=== PATIENT | male | born 1965 | race Caucasian/White ===

== ENCOUNTER → 2017-10-07 10:02 | Outpatient (CLI) | payer OTHER, SELFPAY ==
[2017-10-07 14:17] LABS: Absolute Lymphocyte Count 1.53 X10^3/ul (0.83-4.51); Absolute Neutrophil Count 4.4 X10^3/uL (2.0-7.7); Basophil# 0.02 X10^3/uL; Basophil% 0.3 % (0-1); Eosinophil# 0.05 X10^3/uL; Eosinophils% 0.8 % (0-5); Hematocrit 48.2 % (40-54); Hemoglobin 16.2 g/dl (13.0-16.5); Lymphocyte # 1.53 X10^3/ul (4.0); Lymphocyte % 24.1 % (19-41); Mean Corp Hgb Conc 33.6 g/gl (32-36); Mean Corpuscular Hgb 31.4 pg (27.0-32.0); Mean Corpuscular Volume 93.4 fL (80-94); Mean Platelet Vol. 10.8 fl (6.2-12.0); Monocyte# 0.39 X10^3/uL; Monocyte% 6.1 % (0-10); Neutrophil # 4.36 X10^3/uL (2.7-7.7); Neutrophil % 68.5 % (47-70); POSITIVE COUNT NO; POSITIVE DIFFERENTIAL NO; POSITIVE MORPHOLOGY NO; Platelet Count 159 K/mm3 (150-450); RBC Distribution Width CV 12.9 % (11.6-14.6); RBC Distribution Width SD 43.8 fl (35.1-43.9); Red Blood Count 5.16 M/mm3 (4.6-6.2); White Blood Count 6.4 K/mm3 (4.4-11.0)
[2017-10-07 14:37] LABS: AST(SGOT) 23 U/L (15-37); Alanine Aminotransfer ALT/SGPT 47 U/L (16-61); Albumin, Serum 3.7 g/dL (3.2-5.0); Alkaline Phosphatase 97 U/L (45-117); Anion Gap 8 (5-15); BUN 13 mg/dL (7-18); Calcium,Total 8.4 mg/dL (8.5-10.1); Chloride 109 mmol/L (98-107); EST Glomerular Filtration Rate 83 mL/min (>60); Est Glom Filt Rate - Afr Amer 100 mL/min (>60); Globulin 3.5 g/dL (2.2-4.2); Glucose 77 mg/dL (74-106); PSA,Total - Annual Screen 1.09 ng/mL (0.00-4.00); Potassium 3.9 mmol/L (3.5-5.1); Protein, Total 7.2 g/dL (6.4-8.2); Sodium Level 142 mmol/L (136-145)
[2017-10-07 15:21] LABS: HIV - WCH Non-Reactive (Nonreactive)
[2017-10-17 16:07] LABS: HEPATITIS B SURFACE AG Negative (Negative); QNTFERON TB Ag Minus Nil Value 0 IU/mL (.); QNTFERON TB Ag Value 0.04 IU/mL (.); QNTFERON TB Mitogen Value > 10.00 IU/mL (.); QNTFERON TB Nil Value 0.04 IU/mL (.)
[2017-10-19 11:20] LABS: Hep B Surface Antibodies Non Reactive (.); Hep C Antibodies 0.1 s/co ratio (0.0-0.9); Hepatitis B Core Ab Total Negative (Negative); QNTIFERON TB Gold Negative (Negative)
== END ==
PROVIDERS: Family Provider Family Medicine; PCP Family Medicine; Visit Provider Dermatology
DX: Z00.00 Encounter for general adult medical examination without abnormal findings (principal); Z79.899 Other long term (current) drug therapy; L40.0 Psoriasis vulgaris
CPT/HCPCS: 36415; 80048; 80076; 84153; 85025; 86480; 86703; 86704; 86706; 86803; 87340; G0103

== ENCOUNTER → 2020-01-25 | Outpatient (CLI) | payer OTHER, SELFPAY | END | disposition home or self-care (01) | LOC: LABSPEC 16:41 | PROVIDERS: PCP Family Medicine; Referring Provider Family Medicine; Visit Provider Family Medicine | DX: J06.9 Acute upper respiratory infection, unspecified (principal) | CPT/HCPCS: 87635; U0003 ==

== ENCOUNTER → 2020-04-23 16:37 | Outpatient (CLI) | payer OTHER, SELFPAY ==
[2020-04-23 18:25] LABS: Hematocrit 47.8 % (40-54); Hemoglobin 15.9 g/dL (13.0-16.5); Mean Corp Hgb Conc 33.3 g/dL (32-36); Mean Corpuscular Hgb 31.2 pg (27.0-32.0); Mean Corpuscular Volume 93.9 fL (80-94); Mean Platelet Vol. 10.7 fl (6.2-12.0); Platelet Count 187 K/mm3 (150-450); RBC Distribution Width CV 12.5 % (11.6-14.6); RBC Distribution Width SD 43.1 fl (35.1-43.9); Red Blood Count 5.09 M/mm3 (4.6-6.2); White Blood Count 6.5 K/mm3 (4.4-11.0)
[2020-04-23 19:00] LABS: Thyroid Stim Hormone (TSH) 0.96 uIU/mL (0.358-3.74)
== END ==
PROVIDERS: PCP Family Medicine; Referring Provider Family Medicine; Visit Provider Nurse Practitioner Family
DX: R53.83 Other fatigue (principal)
CPT/HCPCS: 36415; 84443; 85027

== ENCOUNTER 2022-02-13 07:38 | Outpatient (CLI) | payer OTHER, SELFPAY ==
[2022-02-13 10:35] LABS: Cholesterol 156 mg/dL (200); High Density Lipoprotein 46 mg/dL; PSA,Total - Annual Screen 2.01 ng/mL (0.00-4.00); Triglycerides 96 mg/dL; Very Low Density Lipoprotein 19 mg/dL (5-40)
== END 2022-02-13 23:59 | disposition home or self-care (01) ==
PROVIDERS: PCP Family Medicine; Referring Provider Family Medicine; Visit Provider Family Medicine
DX: Z00.00 Encounter for general adult medical examination without abnormal findings (principal); V70.0XXA Driver of bus injured in collision with pedestrian or animal in nontraffic accident, initial encounter
CPT/HCPCS: 36415; 80061; 84153; G0103

== ENCOUNTER → 2023-03-30 | Outpatient (CLI) | payer OTHER, SELFPAY ==
[2023-03-30 13:38] LABS: PSA,Total - Annual Screen 2.24 ng/mL (0.00-4.00)
== END | disposition home or self-care (01) ==
LOC: MFPLAB 10:51
PROVIDERS: PCP Family Medicine; Visit Provider Family Medicine
DX: Z12.5 Encounter for screening for malignant neoplasm of prostate (principal)
CPT/HCPCS: 36415; 84153; G0103

== ENCOUNTER 2023-09-09 20:45 | Emergency (ER) | payer OTHER, SELFPAY ==
[2023-09-09 20:46] VITALS: BP 139/73; PULSE 75; RESP 16; TEMP 36.6; O2SAT 95; BMI 32.7
--- NOTE | 2023-09-09 20:56 | EKG12_ITS ---
Test Reason : Blood Pressure : / mmHG Vent. Rate : 066 BPM Atrial Rate : 066 BPM P-R Int : 108 ms QRS Dur : 084 ms QT Int : 378 ms P-R-T Axes : 032 -19 -03 degrees QTc Int : 396 ms Sinus rhythm with short TN Minimal voltage criteria for LVH, may be normal variant ( R in aVL ) Borderline ECG Confirmed by BILLIE MURCIA, EDUARDO ([id number]), publication editor HARISH CHAVIS ([id number]) on 09/15/2023 2:22:54 PM Referred By: Confirmed By:CHE WISE MD
[2023-09-09 21:05] LABS: Absolute Lymphocyte Count 2.34 X10^3/uL (0.83-4.51); Absolute Neutrophil Count 5.9 X10^3/uL (2.0-7.7); Basophil# 0.03 X10^3/uL; Basophil% 0.3 % (0-1); Eosinophil# 0.13 X10^3/uL; Eosinophils% 1.4 % (0-5); Hematocrit 48.2 % (40-54); Hemoglobin 16.1 g/dL (13.0-16.5); Lymphocyte # 2.34 X10^3/ul (0.83-4.51); Lymphocyte % 25.3 % (19-41); Mean Corp Hgb Conc 33.4 g/dL (32-36); Mean Corpuscular Hgb 30.6 pg (27.0-32.0); Mean Corpuscular Volume 91.6 fL (80-94); Mean Platelet Vol. 9.8 fl (6.2-12.0); Monocyte# 0.85 X10^3/uL; Monocyte% 9.2 % (0-10); NRBC Flagged by Analyzer 0 % (0-5); Neutrophil # 5.88 X10^3/uL (2.7-7.7); Neutrophil % 63.5 % (47-70); Platelet Count 192 K/mm3 (150-450); RBC Distribution Width CV 12.6 % (11.6-14.6); RBC Distribution Width SD 42.4 fl (35.1-43.9); Red Blood Count 5.26 M/mm3 (4.6-6.2); White Blood Count 9.3 K/mm3 (4.4-11.0)
--- NOTE | 2023-09-09 21:12 | EDS_ITS ---
HPI HPI - GI History of Present Illness Chief Complaint: Abd Pain Narrative Narrative: 58-year-old male presenting with abdominal pain. He states this started acutely about 20 minutes prior to arrival. He states that sharp started in the left flank. He states that his whole abdomen feels tight now. He is having trouble finding a position of comfort. He has mild nausea. He denies constipation or diarrhea. No urinary complaints. He states he has a distant history of kidney stones in the past. He states he is never felt pain like this before. PFSH PFS Medical History MERARY (obstructive sleep apnea) Urinary calculus Shoulder pain Home Medications ?Medication ?Instructions ?Recorded ?Last Taken ?Type No Known/Unobtainable [No Known 04/29/16 Unknown History Home Medications] Allergy/AdvReac Type Severity Reaction Status Date / Time No Known Allergies Allergy Verified 09/28/18 08:04 Family History Grandmother Diabetes Grandfather Diabetes Emphysema of lung Mother Macular degeneration Father Prostate cancer Surgical History H/O shoulder surgery Social History Smoking Status: Never smoker ROS ROS ED Constitutional Constitutional ED: Denies chills, fever(s) or sweats Eyes Eyes: Denies blurry vision or change in vision ENT ENT ED: Denies ear pain or sore throat Cardiovascular Cardiovascular: Denies chest pain, palpitations or racing heartbeat Respiratory/Chest Respiratory/Chest: Denies cough, dyspnea or sputum Gastrointestinal Gastrointestinal: Reports abdominal pain and nausea; Denies constipation, diarrhea or vomiting Genitourinary Genitourinary ED: Denies dysuria, hematuria or urinary frequency Musculoskeletal Musculoskeletal: Denies arthralgias, myalgias or neck pain Integumentary Denies abscess, Abrasions or rash Neurologic Neurologic: Denies headache(s), paresthesias or weakness Psychiatric Psychiatric: Denies anxiety, depression, suicidal ideation or suicidal thoughts Endocrine Endocrinology: Denies polydipsia or polyuria EXAM Physical Exam Const Vital Signs: 09/09/23 20:46 Temperature 98 F Temperature Source Temporal Pulse Rate 75 Respiratory Rate 16 Blood Pressure 139/73 H Blood Pressure Mean 95 Pulse Ox 95 Oxygen Delivery Method Room Air Positive well nourished General Appearance ED: NAD HEENT Reports moist mucous membranes Eyes PERRL and EOMs intact bilaterally Resp normal respiratory effort and clear to auscultation bilaterally Auscultation: Negative for rales, rhonchi or wheezes Cardio regular rate and regular rhythm GI Palpation: tender LLQ Back/Spine no CVA tenderness Neuro CN's II-XII intact bilaterally Sensorium / Orientation: alert, oriented to person, oriented to place and oriented to time Motor Exam: strength 5/5 throughout Psych mental status grossly normal Skin no wounds MDM MDM MDM Narrative Medical decision making narrative: 58-year-old male presenting with left lower quadrant abdominal pain. This is acute in nature. Differential includes kidney stone, UTI, pyelonephritis, diverticulitis, bowel obstruction, constipation. CBC will be obtained to assess white blood cell count, hemoglobin and platelets. BMP to assess renal function and electrolytes, glucose. Urinalysis to assess for occult blood or UTI. Patient medicated with morphine, Zofran, Toradol. Patient pain is improved with medication. CBC shows normal white blood cell count, hemoglobin, platelets. BMP shows normal renal function and electrolytes. Urinalysis negative for infection or occult blood. I did obtain a CT of the abdomen pelvis with IV contrast which showed no acute findings in the left lower abdomen. There is no evidence of obstructive stone. Does show that the gallbladder is contracted with probable cholelithiasis although the patient does have any pain in the right upper quadrant. Patient counseled on workup was negative. Feel he stable for discharge home. Return precautions were discussed. Impression: 1. Left lower quadrant abdominal pain Lab Data Attestation: I reviewed the patient's lab results. Labs: Laboratory Results - last 24 hr 09/09/23 09/09/23 20:57 21:20 WBC 9.3 RBC 5.26 Hgb 16.1 Hct 48.2 MCV 91.6 MCH 30.6 MCHC 33.4 RDW Std Deviation 42.4 RDW Coeff of Higinio 12.6 Plt Count 192 MPV 9.8 Immature Gran % (Auto) 0.300 Neut % (Auto) 63.5 Lymph % (Auto) 25.3 [place] % (Auto) 9.2 Eos % (Auto) 1.4 Baso % (Auto) 0.3 Absolute Neuts (auto) 5.9 Absolute Lymphs (auto) 2.34 Nucleated RBC % 0 Sodium 142 Potassium 3.8 Chloride 108 H Carbon Dioxide 31.0 Anion Gap 3 L BUN 11 Creatinine 1.07 Estim Creat Clear Calc 81.55 Est GFR (MDRD) Af Amer 91 Est GFR (MDRD) Non-Af 75 BUN/Creatinine Ratio 10.3 Glucose 124 H Calcium 9.8 Urine Color Yellow Urine Clarity Clear Urine pH 5.0 Ur Specific [place] 1.020 Urine Protein Negative Urine Glucose (UA) Normal Urine Ketones Negative Urine Occult Blood Negative Urine Nitrite Negative Urine Bilirubin Negative Urine Urobilinogen Normal Ur Leukocyte Esterase 25 H Urine RBC 0 SEEN Urine WBC 0-5 SEEN Ur Squamous Epith Cells 0 SEEN Urine Bacteria 0 SEEN Urine Mucus 0 SEEN Radiography Diagnostic Testing: Clinical Impression(s) from Imaging Studies Abdomen/Pelvis CT 09/09/23 21:41 IMPRESSION: Findings consistent with acute pancreatitis. Contracted gallbladder with probable cholelithiasis. Ultrasound correlation may be helpful. Hepatic steatosis. Colonic diverticulosis without evidence of acute diverticulitis. Bilateral nephrolithiasis without hydronephrosis.. Electronically Signed: Caroline Szymanski MD at 22:25 EDT , Discharge Plan Triage Chief Complaint: Abd Pain Other Complaint: Flank Pain ED Provider: Atilio Beckford Dx/Rx/DC Orders Instructions: ED Abdominal Pain Unkn Cause Male... Prescriptions: No Action No Known Home Medications Primary Care Provider: Татьяна Wiley Referrals: Татьяна Wiley MD [Primary Care Provider] - Print Language: Nigerian Disposition Disposition: Home, Self Care
[2023-09-09 21:16] LABS: Anion Gap 3 (5-15); BUN 11 mg/dL (7-18); BUN/Creat Ratio 10.3 RATIO (10-20); Calcium,Total 9.8 mg/dL (8.5-10.1); Chloride 108 mmol/L (98-107); Creatinine, Serum 1.07 mg/dL (0.70-1.30); EST Glomerular Filtration Rate 75 mL/min (>60); Est Glom Filt Rate - Afr Amer 91 mL/min (>60); Estimated Creatinine Clearance 81.55 ml/min; Glucose 124 mg/dL (74-106); Potassium 3.8 mmol/L (3.5-5.1); Sodium Level 142 mmol/L (136-145)
[2023-09-09 21:26] LABS: Bacteria 0 SEEN /hpf (None Seen); Mucous, Urine 0 SEEN /hpf (<or=2+); Red Blood Cells-Urine 0 SEEN /hpf (0-5); Squamous Epithelial Cells - UA 0 SEEN /hpf (0-5)
[2023-09-09] MEDS: Ondansetron 4 MG/2 ML Vial IV (21:36)
[2023-09-09] MEDS: Ketorolac 15 MG/ML Vial IV (21:36)
[2023-09-09] MEDS: 0.9% Normal Saline (1000mL) 1,000 ML 999 ML IV (21:36)
[2023-09-09 21:38] LABS: Color, Urine Yellow (Yellow); Glucose, Dipstick Normal (Normal); Ketone-Dipstick Negative (Negative); Leukocyte Esterase-Dipstick 25 /ul (Negative); Nitrite-Dipstick Negative (Negative); Occult Blood-Urine Negative /ul (Negative); Protein-Dipstick Negative (Negative); Urine Bilirubin Dipstick Negative (Negative); Urine Clarity Clear (Clear); Urine Urobilinogen Normal (Normal)
--- NOTE | 2023-09-09 21:41 | CT_ITS ---
EXAM: CT Abdomen And Pelvis W/ Contrast Injection HISTORY: left side abd pain TECHNIQUE: Routine protocol CT abdomen pelvis. IV Contrast: IV 100mL Isovue-370 . Oral Contrast: without. Sagittal and coronal images were reconstructed. RADIATION DOSAGE (If Supplied By Facility): CTDIvol = ( 16.40 ) mGy, DLP = ( 1217.80 ) mGycm Individualized dose optimization techniques were used for this CT. COMPARISON: CT abdomen pelvis 01/01/2016. LIMITATIONS: None. FINDINGS: LOWER CHEST: Dependent atelectasis in the lung bases. LIVER: Fatty infiltration. Small 0.8 cm low-attenuation focus in the right lobe is likely a cyst, too small to characterize. GALLBLADDER/BILE DUCTS: Gallbladder contracted with probable small noncalcified gallstones. PANCREAS: Mildly enlarged heterogeneous body through tail with adjacent stranding. Small amount of adjacent fluid extends into the anterior pararenal space on the left. No localized collection. SPLEEN: Unremarkable. ADRENAL GLANDS: Unremarkable. KIDNEYS / URETERS: Several calculi in the kidneys. No hydronephrosis. BOWEL / MESENTERY: Scattered diverticula throughout the colon. No bowel obstruction. APPENDIX: Identified and normal. No evidence of acute appendicitis. PERITONEUM: No free air. No free fluid. VESSELS: Abdominal aorta is normal caliber. RETROPERITONEUM: Unremarkable. REPRODUCTIVE ORGANS: Prostate mildly enlarged. BLADDER: Unremarkable. ABDOMINAL WALL: Small umbilical hernia and small left inguinal hernia contain only fat, no bowel. BONES: No acute abnormality. Degenerative changes in the lumbar spine OTHER: None. CT/Abdomen/Pelvis W IV Cont ONLY IMPRESSION: Findings consistent with acute pancreatitis. Contracted gallbladder with probable cholelithiasis. Ultrasound correlation may be helpful. Hepatic steatosis. Colonic diverticulosis without evidence of acute diverticulitis. Bilateral nephrolithiasis without hydronephrosis.. Electronically Signed: Caroline Szymanski MD at 22:25 EDT ,
[2023-09-09 21:47] LABS: White Blood Cells 0-5 SEEN /hpf (0-5)
[2023-09-09 22:00] VITALS: BP 130/71; PULSE 74; RESP 16; TEMP 36.6; O2SAT 98
== END 2023-09-09 22:43 | disposition home or self-care (01) ==
PROVIDERS: Emergency Provider Student in an Organized Health Care Education/Training Program; PCP Family Medicine; Visit Provider Student in an Organized Health Care Education/Training Program
DX: R10.32 Left lower quadrant pain (principal); R11.0 Nausea
CPT/HCPCS: 74177; 80048; 81001; 85025; 93005; 96361; 96374; 96375; 99283; J7030; Q9967; A4216; J2405

== ENCOUNTER 2023-09-11 10:56 | Outpatient (CLI) | payer OTHER, SELFPAY ==
[2023-09-11 12:20] LABS: Absolute Neutrophil Count 8.3 X10^3/uL (2.0-7.7); Basophil# 0.03 X10^3/uL; Basophil% 0.3 % (0-1); Eosinophil# 0.11 X10^3/uL; Hematocrit 44.3 % (40-54); Hemoglobin 14.9 g/dL (13.0-16.5); Lymphocyte % 12.2 % (19-41); Mean Corp Hgb Conc 33.6 g/dL (32-36); Mean Corpuscular Hgb 30.8 pg (27.0-32.0); Mean Corpuscular Volume 91.7 fL (80-94); Mean Platelet Vol. 10.3 fl (6.2-12.0); Monocyte% 8.4 % (0-10); NRBC Flagged by Analyzer 0 % (0-5); Neutrophil # 8.29 X10^3/uL (2.7-7.7); Neutrophil % 77.8 % (47-70); Platelet Count 178 K/mm3 (150-450); RBC Distribution Width CV 12.5 % (11.6-14.6); RBC Distribution Width SD 41.8 fl (35.1-43.9); Red Blood Count 4.83 M/mm3 (4.6-6.2); White Blood Count 10.7 K/mm3 (4.4-11.0)
[2023-09-11 12:39] LABS: AST(SGOT) 17 U/L (15-37); Alanine Aminotransfer ALT/SGPT 38 U/L (16-61); Albumin, Serum 3.5 g/dL (3.2-5.0); Alkaline Phosphatase 95 U/L (45-117); Amylase 90 U/L (25-115); Anion Gap 4 (5-15); BUN 11 mg/dL (7-18); BUN/Creat Ratio 10.7 RATIO (10-20); Calcium,Total 8.8 mg/dL (8.5-10.1); Chloride 110 mmol/L (98-107); Creatinine, Serum 1.03 mg/dL (0.70-1.30); EST Glomerular Filtration Rate 79 mL/min (>60); Est Glom Filt Rate - Afr Amer 95 mL/min (>60); Globulin 3.6 g/dL (2.2-4.2); Glucose 125 mg/dL (74-106); Lipase 66 U/L (13-75); Protein, Total 7.1 g/dL (6.4-8.2); Sodium Level 140 mmol/L (136-145)
== END 2023-09-11 23:59 | disposition home or self-care (01) ==
LOC: MFPLAB 10:56
PROVIDERS: PCP Family Medicine; Visit Provider Family Medicine
DX: R10.9 Unspecified abdominal pain (principal)
CPT/HCPCS: 36415; 80053; 82150; 83690; 85025

== ENCOUNTER → 2023-09-23 | Outpatient (CLI) | payer OTHER, SELFPAY ==
--- NOTE | 2023-09-23 07:20 | US_ITS ---
HISTORY: Abdominal pain. TECHNIQUE: Smith scale and color doppler imaging was performed of the right upper quadrant. 62 images. COMPARISON: CT 09/09/2023. FINDINGS: LIVER: 17 cm in length. Increased echogenicity without focal lesion demonstrated. No intrahepatic ductal dilatation. MAIN PORTAL VEIN: Patent with flow in the appropriate direction. COMMON BILE DUCT: 4 mm in diameter. GALLBLADDER: No gallstones. 2 mm wall thickness. No pericholecystic fluid. Sonographic Fraga sign negative. PANCREAS: Not well visualized due to overlying bowel gas. RIGHT KIDNEY: 12 cm in length. No hydronephrosis. 4 mm and 6 mm calculi. US/Abdomen Limited IMPRESSION: Mild hepatomegaly with hepatic steatosis. No sonographic evidence of cholelithiasis. Nonobstructing right renal calculi. Electronically Signed: Mariela Ibrahim MD at 8:34 EDT ,
== END | disposition home or self-care (01) ==
PROVIDERS: PCP Family Medicine; Referring Provider Family Medicine; Visit Provider Family Medicine
DX: R10.9 Unspecified abdominal pain (principal)
CPT/HCPCS: 76705

== ENCOUNTER → 2023-10-20 | Outpatient (CLI) | payer OTHER, SELFPAY ==
--- NOTE | 2023-10-20 09:57 | NM_ITS ---
CLINICAL: 58-year-old male with history of abdominal pain. RADIONUCLIDE HEPATOBILIARY SCINTIGRAPHY COMPARISON: Abdominal ultrasound report 09/23/2023 FINDINGS: Following the intravenous administration of 5.4 mCi of 99m Tc Mebrofenin, hepatobiliary images reveal: 1. Relatively prompt and homogeneous radiopharmaceutical concentration is noted by a normal sized liver. No parenchymal defects are identified. 2. Gallbladder activity is identified at 15 minutes post radiopharmaceutical administration. 3. Small intestinal tract is observed at 30 minutes following tracer injection. 4. Washout of the radiopharmaceutical by the hepatic parenchyma appears qualitatively normal. Cholecystokinin (0.02 ug/kg) was administered intravenously over a 30-minute period. The post CCK gallbladder ejection fraction calculated at 20 minutes following Cholecystokinin administration was noted to be < 5 % (normal greater than 35%). NM/Hepatobilliary Img w/Pharm Int IMPRESSION: 1. ABNORMAL 99m Tc Mebrofenin hepatobiliary imaging examination with Cholecystokinin. A. A gallbladder ejection fraction calculated to be less than 35% following the administration of Cholecystokinin is consistent with the presence of functional hepatobiliary disease (gallbladder and/or sphincter of Oddi dyskinesia) and/or organic hepatobiliary disease (chronic acalculous cholecystitis and/or cystic duct syndrome) in patients with intermediate to high pretest probabilities of hepatobiliary illness. (Kusum Yañez et al, Journal of Nuclear Medicine 32:1695, 1991). Electronically Signed: Eugene Garner DO at 12:05 EDT ,
== END | disposition home or self-care (01) ==
LOC: NM 09:54
PROVIDERS: PCP Family Medicine; Referring Provider Family Medicine; Visit Provider Family Medicine
DX: R10.9 Unspecified abdominal pain (principal)
CPT/HCPCS: 78227; A9537; J2805

== ENCOUNTER → 2024-12-12 | Outpatient (CLI) | payer OTHER, SELFPAY ==
[2024-12-12 17:43] LABS: Hematocrit 46.5 % (40-54); Hemoglobin 15.9 g/dL (13.0-16.5); Immature Granulocytes Count 0.020 X10^3/uL (0.0-0.0); Mean Corp Hgb Conc 34.2 g/dL (32-36); Mean Corpuscular Volume 91.7 fL (80-94); Mean Platelet Vol. 10.4 fl (6.2-12.0); NRBC Flagged by Analyzer 0 % (0-5); Platelet Count 203 K/mm3 (150-450); RBC Distribution Width CV 12.9 % (11.6-14.6); RBC Distribution Width SD 43.0 fl (35.1-43.9); Red Blood Count 5.07 M/mm3 (4.6-6.2); White Blood Count 8.6 K/mm3 (4.4-11.0)
[2024-12-12 18:43] LABS: AST(SGOT) 31 U/L (<=37); Alanine Aminotransfer ALT/SGPT 47 U/L (<=46); Albumin, Serum 4.3 g/dL (3.4-4.8); Alkaline Phosphatase 95 U/L (40-129); Bilirubin, Direct 0.30 mg/dL (0.00-0.30); Globulin 2.9 g/dL (2.2-4.2); Hepatitis B Surface Antigen Nonreactive (Nonreactive); Hepatitis C Antibody Nonreactive (Nonreactive)
[2024-12-14 14:09] LABS: QNTFERON TB Mitogen Value > 10.00 IU/mL (.); QNTFERON TB Nil Value 0 IU/mL (.); QNTFERON TB1+ Ag Value 0 IU/mL (.); QNTFERON TB2+ Ag Value 0 IU/mL (.); QNTIFERON TB Positive Criteria Negative (Negative)
== END | disposition home or self-care (01) ==
PROVIDERS: PCP Family Medicine; Referring Provider Dermatology; Visit Provider Dermatology
DX: Z79.899 Other long term (current) drug therapy (principal)
CPT/HCPCS: 36415; 80076; 85025; 86480; 86704; 86706; 86803; 87340